=== PATIENT | male | born 1960 | race Caucasian/White ===

== ENCOUNTER 2021-11-09 05:10 | Emergency (ER) | payer MEDICARE, OTHER ==
[~2021-11-09] VITALS: Ht 183 cm; Wt 115.0 kg
[2021-11-09 05:16] VITALS: BP 162/94
[2021-11-09] MEDS ORDERED: RX-POLY/TRIMETH (POLYTRIM) OP 10 ML BTL OP STA (05:28)
--- NOTE | 2021-11-09 05:35 | ED EENT ---
History of Present Illness General Stated Complaint: LEFT EYE PAIN Source: patient History of Present Illness Date Seen by Provider: Nov 09, 2021 Time Seen by Provider: 05:15 Initial Comments 61-year-old male presenting with pain to the left eye. He states that around 4 AM yesterday he woke up with eye pain. He has had similar issues a year ago was placed on antibiotic drops had a steroid at that time. He has not had any change in his vision. He states that the pain has improved since yesterday morning. He continues to have some mild redness to his left eye. He has been alternating cold and warm compresses to the eye. He does have a history of diabetes but states that he has not had his medicine for over 2 weeks while he has been here visiting family. However his sugars have reportedly been doing well as he has been more active here in [place] than he usually is at home. Timing/Duration: abrupt Severity: moderate Location: eye (L) Prearrival Treatment: other (Alternating cold and warm compresses) Associated Symptoms: No change in hearing, No cough, No drooling, No ear drainage, No facial pain/swelling, No fever, No malaise, No nasal congestion/drainage, No poor fluid intake, No poor solids intake, No sinus infection, No sore throat, No tooth pain, No voice change Allergies and Home Medications Allergies Coded Allergies: No Known Drug Allergies (Unverified , 11/09/21) Patient Home Medication List Home Medication List Reviewed: Yes Review of Systems Review of Systems Constitutional: No chills, No fever Eyes: See HPI Ears: No Symptoms Reported Nose: no symptoms reported Mouth: no symptoms reported Throat: no symptoms reported Respiratory: no symptoms reported Cardiovascular: no symptoms reported Gastrointestinal: no symptoms reported Musculoskeletal: no symptoms reported Skin: no symptoms reported Past Pibuqcz-Opknur-Nrcnji Hx Patient Social History Tobacco Use?: No Use of E-Cig and/or Vaping dev: No Substance use?: No Alcohol Use?: No Past Medical History Surgery/Hospitalization HX: Diabetes mellitus, Ankylosing spondylitis, Pinched nerve Lumbar Physical Exam Vital Signs Vital Signs - First Documented 11/09/21 05:16 Temp 35.9 Pulse 107 Resp 16 B/P (MAP) 162/94 (116) Pulse Ox 99 O2 Delivery Room Air Height, Weight, BMI Height: '" Weight: lbs. oz. 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 He has watery drainage from the eye. He has mild conjunctival inflammation. Since he reports this is similar to when he did had symptoms a year ago that responded to an antibiotic eyedrop will start him on that. Counseled that I would avoid the steroid eyedrop unless he has worsening symptoms or not improving with antibiotic eye drop. Steroids could contribute to increased eye pressure and damage rather than help unless he has worsening symptoms. Will provide eye doctor information in case he worsens and needs more formal exam than can be done in the ED prior to his leaving for home in a few days. Departure Impression Primary Impression: Allergic conjunctivitis, left eye Disposition: 01 HOME, SELF-CARE Condition: Stable Departure-Patient Inst. Decision time for Depature: 05:30 Referrals: NO,LOCAL PHYSICIAN (PCP) Primary Care Physician Ophthalmmologist Patient Instructions: How to Use Eye Drops and Eye Ointment ED, Conjunctivitis (Noninfectious Pinkeye) (DC) Add. Discharge Instructions: Use the PolyTrim antibiotic eye drops by applying 1 drop to left eye every 3 hours while awake. Use this for the next 5-7 days to clear the redness and irritation to your eye. You may continue with alternating cold and warm compresses to help with irritation to your eye as well. If not improving then you could check with eye doctor for more formal exam and evaluation. One of the Eye doctors here in [place] is Dr. Bose. His address is [address] [place] [address]. His phone number is [phone] ТАТЬЯНА ESPINO MD Nov 09, 2021 05:35
== END 2021-11-09 05:45 | disposition home or self-care (01) ==
LOC: ER FS 05:17 → EDBD 05:17 → ER FS 05:45
DX: H10.12 Acute atopic conjunctivitis, left eye (principal)
CPT/HCPCS: 99285